=== PATIENT | male | born 1950 | race Caucasian/White ===

== ENCOUNTER 2025-01-14 08:31 | Emergency (ER) | payer OTHER ==
[~2025-01-14] VITALS: Ht 195.6 cm; Wt 97.7 kg
[2025-01-14 09:21] LABS: GLUCOMETER DEV NAME(LOC) ERT.7; GLUCOSE,POINT OF CARE 174 MG/DL (70-110)
[2025-01-14 09:37] LABS: PLATELET COUNT (AUTO) 291 K/uL (150-450); RED BLOOD CELL COUNT(AUTO) 4.46 MIL/uL (4.50-5.90); RED CELL DISTRIBUTION WIDTH 13.3 % (11.5-14.5); WHITE BLOOD COUNT (AUTO) 6.7 K/uL (4.5-11.0)
[2025-01-14 09:47] LABS: CALCIUM, TOTAL 8.4 mg/dL (8.8-10.5); CREATININE 0.93 mg/dL (0.60-1.30); GLOMERULAR FILTR. RATE CALC > 60 mL/min (>60); GLUCOSE,RANDOM 177 mg/dL (70-110); SODIUM SERUM 139 mmol/L (136-145); UREA NITROGEN, BLOOD 20 mg/dL (7-18)
[2025-01-14 09:56] LABS: TROPONIN I-HIGH SENSITIVITY 16 ng/L (<76)
[2025-01-14] MEDS ORDERED: HYDR25TA2 PO (13:38)
[2025-01-14] MEDS ORDERED: MECL-302 PO (13:38)
[2025-01-14] MEDS: IBUPROFEN 600 MG TABLET PO ONE (13:39)
[2025-01-14] MEDS: MECLIZINE HCL 25 MG TABLET PO ONE (13:51)
[2025-01-14] MEDS: LIDOCAINE 1% 20 ML VIAL SQ ONE (14:08)
[2025-01-14 15:05] VITALS: BP 144/77; PULSE 65; RESP 18; TEMP 97.5; O2SAT 97
== END 2025-01-14 15:08 | disposition home or self-care (01) ==
LOC: EMS 08:44
DX: I10 Essential (primary) hypertension (principal); M77.31 Calcaneal spur, right foot; R42 Dizziness and giddiness; E11.9 Type 2 diabetes mellitus without complications; I11.9 Hypertensive heart disease without heart failure; Z98.890 Other specified postprocedural states
CPT/HCPCS: 99285; 71045; 80048; 82962; 84484; 85025; 36415; 73650; 93005; J3490